=== PATIENT | female | born 1940 | race Caucasian/White ===

== ENCOUNTER 2023-02-20 19:23 | Emergency (ER) | payer MEDICARE, OTHER ==
[~2023-02-20] VITALS: Ht 167.6 cm; Wt 76.7 kg
[~2023-02-20 19:23] MED LIST: ATEN50TA PO; TELM40TA2 PO
--- NOTE | 2023-02-20 19:30 | NUR ---
ELIZABETH FROM [facility] C/O R SHOULDER FRACTURE PT TRIP/FELL AT 9 AM. [id number] NORMALLY. LAO SPEAKING. -THINNERS
--- NOTE | 2023-02-20 19:59 | NUR ---
PT TAKEN TO CT
--- NOTE | 2023-02-20 20:15 | NUR ---
PT RETURNED FROM CT
--- NOTE | 2023-02-20 22:12 | NUR ---
[facility] CALLED FOR BLS GOING BACK TO [facility] PER [facility] ETA LESS THAN 30
[2023-02-20] MEDS ORDERED: MORPHINE SULFATE INJ 2 MG/ML DISP.SYRIN IV ONE (22:30)
--- NOTE | 2023-02-20 23:03 | NUR ---
[facility] AT BEDSIDE TO TAKE PT BACK TO [facility]
--- NOTE | 2023-02-20 23:03 | NUR ---
REPORT GIVEN TO KELECHI @[facility].
[2023-02-20 23:30] VITALS: BP 138/68
== END 2023-02-20 23:50 ==
LOC: ER 19:32
DX: S42.251A Displaced fracture of greater tuberosity of right humerus, initial encounter for closed fracture (principal); I10 Essential (primary) hypertension; R51.9 Headache, unspecified; Z98.890 Other specified postprocedural states; Z79.899 Other long term (current) drug therapy; W19.XXXA Unspecified fall, initial encounter; Y93.89 Activity, other specified; Y92.89 Other specified places as the place of occurrence of the external cause; Y99.8 Other external cause status
CPT/HCPCS: 70450-TC; 72125-TC; 73030-TC